=== PATIENT | female | born 1980 | race Caucasian/White ===

== ENCOUNTER → 2017-01-17 | Outpatient (CLI) | payer OTHER ==
[~2017-01-17] MED LIST: ALBUTEROL0.09 MG/A2 INH; AMOXICILLIN500 MG PO; ATIVAN0.5 MG PO; ATIVAN1 MG PO; BACTRIM DS 8001 TA1 PO; CALAN,ISOPTIN80 MG PO; CATAFLAM50 MG PO; CEPHALEXIN500 M1 PO; CYCLOBENZAPRINE10 MG PO; EC NAPROSYN500 MG PO; FIORICET 325 MG1 TAB PO; FLEXERIL10 MG PO; HYDROCODONE BIT1 T11 PO; HYDROCODONE BIT1 TA2 PO; IBU800 MG PO; IMITREX6 MG/0.5 M SC; INDOCIN50 MG PO; K-DUR 2020 MEQ PO; LISINOPRIL10 MG PO; LYRICA75 M1 PO; MEDROL DOSEPAK4 MG PO; MOTRIN800 MG PO; NAPROSYN500 MG PO; NEURONTIN300 MG PO; NORCO 325 MG-51 TAB PO; NORCO 7.5-3251 EACH PO; PERCOCET 325 MG1 TA2 PO; PERCOCET 325 MG1 TA6 PO; PERCOCET 325 MG1 TA7 PO; PHENERGAN W/DM120 ML PO; PHENERGAN25 M1 PO; PREDNICOT10 MG PO; PREDNICOT20 MG PO; PREDNISONE20 M1 PO; PROAIR HFA0.09 MG/AC INH; PROAIR HFA8.5 GM INH; Percocet 325 MG1 TAB PO; RESTORIL15 MG PO; TESSALON PERLE200 MG PO; TRAMADOL HCL50 MG PO; TRAMADOL50 MG PO; VICODIN 5/500 505 MG PO; VOLTAREN50 M1 PO; ZOFRAN ODT4 MG SL; ZOFRAN4 MG PO; ZOFRAN8 MG PO; Zofran4 MG PO; [UNRECOGNIZED DRUG - OTHER] PO; [UNRECOGNIZED DRUG - OTHER] PO
== END | disposition home or self-care (01) ==
LOC: MRI 12:41
DX: M48.07 Spinal stenosis, lumbosacral region (principal); Z98.1 Arthrodesis status

== ENCOUNTER 2017-02-23 08:12 | Inpatient (IN) | payer OTHER ==
[~2017-02-23] VITALS: Ht 165.1 cm; Wt 54.7 kg
[2017-02-23] VITALS (13 sets, daily range): BP systolic 129–165; BP diastolic 73–400
--- NOTE | ~2017-02-23 | PR ---
[place], [place] PROGRESS NOTE NAME: [facility]WICK [facility] [id number] UNIT #: [id number] ROOM: 408 DOCTOR: CRUZ DEAN MD BIRTHDATE: [birth year] DOS: 02/25/2017 SUBJECTIVE: The patient complaining of increasing pain in the right jaw despite of treatment with antibiotics. OBJECTIVE: VITAL SIGNS: Blood pressure 138/82, heart rate 81 beats per minute, breathing 18 times per minute, temperature 98.7 degrees Fahrenheit. GENERAL APPEARANCE: The patient is alert and oriented x 3, in no visible distress. HEENT AND NECK: Exam within normal limits, except for swelling in the right jaw area with pain and tenderness. CARDIOVASCULAR SYSTEM: Heart rate is regular in rate and rhythm. S1 and S2 normally audible. LUNGS: Clear to auscultation. ABDOMEN: Soft, nontender. No obvious organomegaly. Bowel sounds are present. EXTREMITIES: Without significant cyanosis or edema. IMPRESSION: 1. The patient with right second molar abscess going through the mandibular plate into the soft tissues, seen by surgeon, Dr. Zuniga and Dr. Collazo, the ID specialist, but the condition continues to deteriorate. I called [facility] since I could not find Dr. Zuniga and they will accept the patient tomorrow, so the patient can be seen by orofacial surgeon for drainage of the abscess. 2. Chronic low back pain related to surgery of lumbar spine. Chronic lower back pains treated with ibuprofen and Vicodin. 3. Generalized severe anxiety disorder, treated with Ativan as needed. 4. Benign essential hypertension, with controlled blood pressures with Ativan. CRUZ DEAN MD CM:PNTRANS [phone] CRUZ DEAN MD 02/26/17 2331 interface
--- NOTE | ~2017-02-23 | WRIGHTHP ---
[place], [place] PATIENT HISTORY AND PHYSICAL EXAM NAME: IVAN HARDWICK [facility] #: [id number] UNIT #: [id number] ROOM: 408 DOCTOR: CRUZ DEAN MD BIRTHDATE: [birth year] DOS: 02/23/2017 HISTORY OF PRESENT ILLNESS: The patient is a 37-year-old female with previous history of: 1. Lumbar spondylosis, with 2 lower back surgeries and chronic pains. 2. Significant generalized anxiety disorder. 3. Hypertension. 4. Migraine headaches. 5. POLLEN allergies. 6. Bronchial asthma. The patient presented to the Emergency Department with 1 week's complaint of progressive pain in her right lower jaw, which was worse for 3 days. The patient had also developed some swelling in her right jaw area and below. CT scan of the area showed right floor of the mouth abscess from periapical disease involving the right second mandibular molar, breaking through the inner table of the mandible. Dr. Zuniga, the orofacial surgeon was consulted and the patient was admitted to [facility] for treatment with IV antibiotics. Dr. Zuniga started patient on IV clindamycin and no surgical intervention has been recommended so far. No complaints of chest pains. No shortness of breath. No GI or urinary symptoms. The patient complains of significant pain in the lower back and also in the abscess area in the right jaw. REVIEW OF SYSTEMS: LUNGS: No shortness of breath or wheezing. GASTROINTESTINAL: No nausea, vomiting, diarrhea or constipation. CARDIOVASCULAR: No chest pains or palpitations. FAMILY HISTORY: Noncontributory. HOME MEDICATIONS: Vicodin, Ativan, albuterol inhaler, Zofran, verapamil. ALLERGIES: No known drug allergies. PHYSICAL EXAMINATION: GENERAL: Alert and oriented x 3, in no visible distress. HEENT AND NECK: Extraocular movements are intact. Sclerae are anicteric. Oral mucosa is moist and clean. No obvious facial weakness. Neck is supple without any lymphadenopathy. No thyromegaly. No JVD. No carotid arterial bruits. The patient has significant swelling below the right jaw line and to the side of the mandible, which is warm to touch. LUNGS: Clear to auscultation. No wheezing. No rhonchi. CARDIOVASCULAR SYSTEM: Heart rate is regular in rate and rhythm. S1 and S2 normally audible. No significant murmur or any other abnormal cardiac sounds. ABDOMEN: Soft, nontender. No obvious organomegaly. Bowel sounds are present. No obvious herniation. EXTREMITIES: Without significant cyanosis or edema. Warm to touch. CENTRAL NERVOUS SYSTEM: Alert and oriented x 3. Cranial nerves II-XII are [place], [place] PATIENT HISTORY AND PHYSICAL EXAM NAME: IVAN HARDWICK UNIT #: [id number] ROOM: [facility] DOCTOR: CRUZ DEAN MD BIRTHDATE: [birth year] intact. Speech is normal. The patient is able to move all extremities. Normal muscle strength. Deep tendon reflexes are equal on both sides. Plantars were downgoing. LABORATORY DATA: CT of the soft tissues of the neck results as mentioned above. Normal serum electrolytes. Normal CBC. Normal lactic acid level. IMPRESSION: 1. Abscess involving right floor of the mouth with second molar tooth and infection breaking through the inner table of the mandible on the right side, seen by Dr. Zuniga, the orofacial surgeon and recommended clindamycin. I am also consulting Infectious disease specialist to follow. Dr. Zuniga plans to see the patient in the office after infection resolves. 2. Chronic lower back pains for which she had 2 surgeries of the lumbar spine and severe acute pains in the right jaw, to be treated with Vicodin p.r.n. and I will add ibuprofen 800 mg 3 times a day to treatment. 3. Generalized severe anxiety disorder. I will continue Ativan as needed, which she has been taking at home. 4. Benign essential hypertension with controlled blood pressures with verapamil, which has been continued. CRUZ DEAN MD CM:HISPHYS:PATIENT HISTORY AND PHYSICAL EXAMINATION 49 [phone] CRUZ DEAN MD 02/23/171833 interface
--- NOTE | ~2017-02-23 | PR ---
[place], [place] PROGRESS NOTE [id number] UN[facility] #: [id number] ROOM: 408 DOCTOR: CRUZ DEAN MD BIRTHDATE: [birth year] DOS: 02/25/2017 SUBJECTIVE: The patient is still complaining of significant right-sided jaw pains and has been seen by Infectious Disease specialist and facial maxillary surgeon and she remains on antibiotics. OBJECTIVE: VITAL SIGNS: Blood pressure 141/87, heart rate 90 beats per minute, breathing 20 times per minute, temperature 98 degrees Fahrenheit. GENERAL APPEARANCE: The patient is alert and oriented x 3, in no visible distress. HEENT AND NECK: Swelling in the right jaw and below the jaw. CARDIOVASCULAR SYSTEM: Heart rate is regular in rate and rhythm. S1 and S2 normally audible. LUNGS: Clear to auscultation. ABDOMEN: Soft, nontender. No obvious organomegaly. Bowel sounds are present. EXTREMITIES: Without significant cyanosis or edema. IMPRESSION: The patient with abscess involving the right floor of the mouth related to the second molar tooth infection. The patient remains on Unasyn intravenously for the treatment. Dr. Gary Collazo, the Infectious Disease specialist, continues to follow her and will discuss the situation with Dr. Zuniga, the facial surgeon tomorrow. Benign essential hypertension with controlled blood pressure with verapamil. Gastroesophageal reflux disease and esophagitis. The patient on omeprazole. Significant jaw pains, controlled with Vicodin and Dilaudid as needed. CRUZ DEAN MD CM:PNTRANS 1822 CRUZ DEAN MD 02/26/17 0033 interface
--- NOTE | ~2017-02-23 | PR ---
[place], [place] PROGRESS NOTE NAME: [id number] UNIT #: [id number] ROOM: 408 DOCTOR: CRUZ DEAN MD BIRTHDATE: [birth year] DOS: SUBJECTIVE: The patient is still complaining of significant right jaw pains and she has no leukocytosis. The patient remains on clindamycin and ampicillin. OBJECTIVE: GENERAL APPEARANCE: The patient is alert and oriented x 3, in no visible distress. HEENT AND NECK: Swelling of the right jaw. CARDIOVASCULAR SYSTEM: Heart rate is regular in rate and rhythm. S1 and S2 normally audible. LUNGS: Clear to auscultation. ABDOMEN: Soft, nontender. No obvious organomegaly. Bowel sounds are present. EXTREMITIES: Without significant cyanosis or edema. IMPRESSION: The patient with abscess involving the right floor of the mouth related to second molar tooth infection. CRUZ DEAN MD CM:PNYASIR 21 [phone] CRUZ DEAN MD 02/24/171945 interface
--- NOTE | ~2017-02-23 | PR ---
[place], [place] PROGRESS NOTE NAME: IVAN HARDWICK [facility] #: [id number] UNIT #: [id number] ROOM: 408 DOCTOR: CRUZ DEAN MD BIRTHDATE: [birth year] DOS: 02/28/2017 SUBJECTIVE: The patient had dental abscess of the second molar tooth on the right side in the lower jaw with facial swelling. The patient is being treated with Unasyn, which has been recommended for 3 weeks. IMPRESSION: 1. PICC line placement for IV access for antibiotics. 2. The patient is waiting for transfer to [facility] for draining the dental abscess. 3. Generalized severe anxiety disorder. The patient uses Ativan as needed. 4. Benign essential hypertension with controlled blood pressures. CRUZ DEAN MD CM:PNTRANS [phone] CRUZ DEAN MD 03/01/17 0253 interface
--- NOTE | ~2017-02-23 | CON ---
[place], [place] REPORT OF CONSULTATION [id number] UN[facility] #: [id number] ROOM: 408 DOCTOR: HENRY GARCIA DMD BIRTHDATE: [birth year] DOS: REASON FOR CONSULTATION: Right-sided facial swelling. HISTORY OF PRESENT ILLNESS: The patient gives a history of pain for 7 day's duration, treated by her physician for an earache with oral amoxicillin. The patient discontinued medication when she was feeling better and returned to the Emergency Department with pain and swelling today. PHYSICAL EXAMINATION: There is a moderate right-sided facial swelling with mild erythema extending laterally down her neck on the right side. Range of motion is extremely limited, roughly 15 mm of maximum opening. Her right parotid and right submandibular glands were palpated and both ____. There is a firm and fluctuant swelling in the right submandibular space. The submental space is within normal limits and the right sublingual space is tender, but non-swollen. The patient denies any dyspnea or dysphagia. Tooth #31 has a distal fracture. I discussed treatment options with the patient. The swelling is currently non-drainable. The treatment needed is either extraction of tooth #31 or root canal therapy of tooth #31. I recommend IV antibiotics for 1 to 2 days and discharge on oral antibiotics, clindamycin 300 mg t.i.d. and the patient is to followup with her private dentist for treatment. HENYR GARCIA DMD CM:CONSTR:REPORT OF CONSULTATION 53 02/23/172132 interface
--- NOTE | ~2017-02-23 | DS ---
[place], [place] DISCHARGE SUMMARY NAME: IVAN HARDWICK UNIT #: [id number] ROOM: 408 DOCTOR: CRUZ DEAN MD BIRTHDATE: [birth year] DOS: 02/27/2017 HOSPITAL COURSE: The patient with some less pain in her right jaw this morning, but she says when the pains come they are severe. PHYSICAL EXAMINATION: VITAL SIGNS: Blood pressure 140/88, heart rate 78 beats per minute, breathing 18 times per minute, temperature 98 degrees Fahrenheit. GENERAL APPEARANCE: The patient is alert and oriented x 3, in no visible distress. HEENT AND NECK: Extraocular movements are intact. Sclerae are anicteric. Oral mucosa is moist and clean. No obvious facial weakness. Neck is supple without any lymphadenopathy. No thyromegaly. No JVD. No carotid arterial bruits. Swelling of the right side of the jaw. LUNGS: Clear to auscultation. No wheezing. No rhonchi. CARDIOVASCULAR SYSTEM: Heart rate is regular in rate and rhythm. S1 and S2 normally audible. No significant murmur or any other abnormal cardiac sounds. ABDOMEN: Soft, nontender. No obvious organomegaly. Bowel sounds are present. No obvious herniation. EXTREMITIES: Without significant cyanosis or edema. Warm to touch. CENTRAL NERVOUS SYSTEM: Alert and oriented x 3. Cranial nerves II-XII are intact. Speech is normal. The patient is able to move all extremities. Normal muscle strength. Deep tendon reflexes are equal on both sides. Plantars were downgoing. IMPRESSION: 1. The patient with right second molar abscess, going through the mandibular plate into the soft tissues, without significant improvement with IV antibiotics. The patient is being transferred to [facility] for surgical drainage and treatment of bone infection as suspected by Dr. Collazo, the Infectious Disease specialist at [facility]. 2. Chronic lower back pains related to surgery of the lumbar spine, treated with ibuprofen and Vicodin as at home. 3. Generalized severe anxiety, treated with Ativan as needed. 4. Benign essential hypertension, controlled. 5. Anxiety. The patient takes verapamil. [place], [place] DISCHARGE SUMMARY NAME: IVAN HARDWICK UNIT #: [id number] ROOM: 408 DOCTOR: CRUZ DEAN MD BIRTHDATE: [birth year] CRUZ DEAN MD CM:SAL [id number] CRUZ DEAN MD 02/28/17 0846 interface
[~2017-02-23 08:12] MED LIST changes: -CALAN,ISOPTIN80 MG PO; +CALAN80 MG PO
[2017-02-23 09:25] LABS: BASO # 0.1 10*3/uL (0.0-0.1); BASO % 0.6 % (0.0-1.0); EOS # 0.1 10*3/uL (0.0-0.4); EOS % 0.9 % (1.0-4.0); HEMATOCRIT 38.8 % (37.0-47.0); HEMOGLOBIN 12.9 g/dl (12.0-16.0); LYMPH # 1.2 10*3/uL (1.3-4.4); LYMPH % 12.4 % (27.0-41.0); MEAN CELL VOLUME 94.6 fl (81.0-99.0); MEAN CORPUSCULAR HGB 31.5 pg (27.0-31.0); MEAN CORPUSCULAR HGB CONC 33.2 g/dl (33.0-37.0); MEAN PLATELET VOLUME 8.6 fl (9.6-12.3); MONO # 0.7 10*3/uL (0.1-1.0); NEUT # 7.6 10*3/uL (2.3-7.9); NEUT % 78.8 % (47.0-73.0); PLATELET COUNT AUTOMATED 308 10*3/uL (130-400); RED CELL DISTRI WIDTH 12.3 % (0-14.5); WHITE BLOOD COUNT 9.7 10*3/uL (4.8-10.8)
--- NOTE | 2017-02-23 09:25 | NUR ---
PATIENT IS ALERT AND ORIENTED X3, SKIN IS PINK, WARM, AND DRY, RESPIRATIONS ARE EASY AND NONLABORED, CALL LIGHT IN REACH OF THE PATIENT, PATIENT IS SITTING IN BED IN POSITION OF COMFORT TIE SAWYER HILDA IS AWARE OF THE PATIENT AND WAS INTO SEE THE PATIENT, CONTINUING TO MONITOR THE PATIENT. MATT JACKSON
[2017-02-23 09:41] LABS: ALBUMIN 3.5 gm/dl (3.1-4.5); ALKALINE PHOSPHATASE 60 U/L (45-117); BUN 11 mg/dl (7-24); CHLORIDE 106 mmol/L (98-107); CREATININE 0.58 mg/dL (0.55-1.02); SGOT/AST 8 IU/L (3-35); SGPT/ALT 15 U/L (12-78); SODIUM 138 mmol/L (136-145); TOTAL PROTEIN 8.1 gm/dL (6.4-8.2)
--- NOTE | 2017-02-23 09:56 | NUR ---
PATIENT IS ALERT AND ORIENTED X3, STATES THAT HE HAS HAD SOME RELIEF FROM HIS PAIN AT THIS TIME RATES HIS PAIN A 3/10, SKIN IS PINK, WARM, AND DRY, RESPIRATIONS ARE EASY AND NONLABORED, PATIENT IS RESTING IN BED, CALL LIGHT IN REACH OF THE PATIENT, CONTINUING TO MONITOR THE PATIENT. MATT JACKSON
--- NOTE | 2017-02-23 10:19 | NUR ---
PATIENT STATES THAT SHE HAS HAD SOME RELIEF FROM HER PAIN AT THIS TIME, PATIENT IS RESTING IN BED IN POSITION OF COMFORT, CALL LIGHT IN REACH OF THE PATIENT, CONTINUING TO MONITOR THE PATIENT, RATES PAIN A 6/10 AT THIS TIME. MATT JACKSON
--- NOTE | 2017-02-23 11:30 | NUR ---
PATIENT IS ALERT AND ORIENTED X3, SKIN IS PINK, WARM, AND DRY, RESPIRATIONS ARE EASY AND NONLABORED, PATIENT IS RESTING IN BED AND WATCHING TV AT THIS TIME, CALL LIGHT IN REACH OF THE PATIENT, CONTINUING TO MONITOR THE PATIENT. MANUELRN
--- NOTE | 2017-02-23 12:02 | NUR ---
PATIENT IS ALERT AND ORIENTED X3, PATIENT IS SITTING UP IN BED AND WATCHING TV IN POSITION OF COMFORT, STATES THAT SHE HAS HAD RELIEF FROM MOST OF HER PAIN, PATIENT CURRENTLY RATES HER PAIN A 2/10, CALL LIGHT IN REACH OF THE PATIENT, CONTINUING TO MONITOR THE PATIENT. MANUELRN
--- NOTE | 2017-02-23 12:35 | NUR ---
PATIENT IS ALERT AND ORIENTED X3, SKIN IS PINK, WARM, AND DRY, RESPIRATIONS ARE EASY AND NONLABORED, PATIENT IS RESTING IN BED WATCHING TV, CALL LIGHT IN REACH OF THE PATIENT, CONTINUING TO MONITOR THE PATIENT. MATT JACKSON
--- NOTE | 2017-02-23 13:22 | NUR ---
ATTEMPTED TO CALL REPORT ON THE PATIENT AND I SPOKE WITH MORGAN AND SHE STATED " I DONT EVEN KNOW WHO IS GETTING THAT PATIENT, I WILL HAVE THE NURSE WHO GETS IT CALL YOU BACK". MATT JACKSON
--- NOTE | 2017-02-23 13:27 | NUR ---
PATIENT IS ALERT AND ORIENTED X3, STATES THAT SHE IS COMFORTABLE PAIN QUESADA AT THE MOMENT, SKIN IS PINK, WARM, AND DRY, RESPIRATIONS ARE EASY AND NONLABORED, CALL LIGHT IN REACH OF THE PATIENT, CONTINUING TO MONITOR THE PATIENT. MATT JACKSON
--- NOTE | 2017-02-23 13:41 | NUR ---
PATIENT TAKEN TO THE FLOOR BY MAYO NIELSEN AT THIS TIME, REPORT CALLED TO MATT MONROE. MATT JACKSON
--- NOTE | 2017-02-23 14:09 | NUR ---
A 37, admitted to , under the services of Dr. DIANNE HARMON,CRUZ Riley with a diagnosis of ELEVATED BLOOD PRESSURE. Chief complaint is RIGHT FACIAL PAIN. Patient arrived via ambulatory from ER. Initial assessment completed. Vital signs taken and recorded. DR. DIANNE HARMON,CRUZ Riley notified of admission to the unit. Orders received. See assessment for past medical history, medications and allergies. Patient and/or family oriented to unit. [facility] visitation policy reviewed. Clothing/patient valuable form completed. MABEL ZELAYA
[2017-02-23] MEDS ORDERED: ZOFRAN4 MG PO (14:11)
--- NOTE | 2017-02-23 16:50 | NUR ---
MOTRIN/NORCO FOR 02/12 PAIN
--- NOTE | 2017-02-23 18:34 | NUR ---
FELLING MUCH BETTER AFTER MOTRIN/NORCO AND ICE PACK TO RIGHT FACE
--- NOTE | 2017-02-23 18:38 | NUR ---
DR DOMINGO SERVICE NOTIFIED OF NEW CONSULT
--- NOTE | 2017-02-23 20:25 | NUR ---
PT REQUESTED PAIN MEDICATION FOR PAIN OF THE RIGHT JAW. RATES PAIN AT A 7 OUT OF 10.
--- NOTE | 2017-02-23 21:02 | NUR ---
NORCO EFFECTIVE PER PT. PAIN REATED AT 4 OUT OF 10.
[2017-02-24] VITALS: BP 138/86
--- NOTE | 2017-02-24 02:57 | NUR ---
PT REQUESTED MEDICATION FOR PAIN. PAIN IS LOCATED IN RIGHT SIDE OF JAW AND IS THROBBING, ACHING, AND CONSTANT. RATES PAIN AT 7 OUT OF 10.
--- NOTE | 2017-02-24 03:48 | NUR ---
NORCO EFFECTIVE. PT IN BED SLEEPING COMFORTABLY. NO DISTRESS NOTED.
[2017-02-24 06:03] LABS: BASO % 0.4 % (0.0-1.0); EOS # 0.2 10*3/uL (0.0-0.4); EOS % 1.6 % (1.0-4.0); HEMOGLOBIN 11.8 g/dl (12.0-16.0); LYMPH # 1.6 10*3/uL (1.3-4.4); LYMPH % 14.9 % (27.0-41.0); MEAN CELL VOLUME 95.1 fl (81.0-99.0); MEAN CORPUSCULAR HGB 32.1 pg (27.0-31.0); MEAN CORPUSCULAR HGB CONC 33.7 g/dl (33.0-37.0); MEAN PLATELET VOLUME 8.9 fl (9.6-12.3); MONO # 1.2 10*3/uL (0.1-1.0); MONO % 11.2 % (3.0-9.0); NEUT # 7.6 10*3/uL (2.3-7.9); NEUT % 71.5 % (47.0-73.0); PLATELET COUNT AUTOMATED 294 10*3/uL (130-400); RED BLOOD COUNT 3.68 10*6/uL (4.10-5.10); RED CELL DISTRI WIDTH 12.2 % (0-14.5); WHITE BLOOD COUNT 10.6 10*3/uL (4.8-10.8)
--- NOTE | 2017-02-24 06:36 | NUR ---
CALLED . PT IN PAIN AND MEDS ON JUL NOT HELPING AND TOO EARLY TO GIVE NEXT DOSE. NEW ORDERS RECEIVED. SEE JUL.
--- NOTE | 2017-02-24 07:07 | NUR ---
PT REQUESTED PAIN MEDICATION. RATES PAIN AT 10 OUT OF 10. DESCRIBES THE PAIN ACHING, THROBBING AND LOCATED IN THE RIGHT JAW.
--- NOTE | 2017-02-24 07:40 | NUR ---
PER PATIENT, DILAUDID WAS EFFECTIVE. NO FURTHER COMPLAINTS AT THIS TIME.
[2017-02-24 08:00] VITALS: BP 144/84
--- NOTE | 2017-02-24 09:50 | NUR ---
PATIENT MEDICATED WITH PO NORCO PER ORDER FOR COMPLAINTS OF RIGHT JAW PAIN 01/13. WILL MONITOR FOR EFFECTIVENESS.
--- NOTE | 2017-02-24 10:35 | NUR ---
PER PATIENT NORCO WAS SOMEHWAT EFFECTIVE.
[2017-02-24 12:00] VITALS: BP 136/80
--- NOTE | 2017-02-24 13:05 | NUR ---
PATIENT MEDICATED WITH DILAUDID FOR 10/10 PAIN AT THIS TIME. WILL MONITOR.
--- NOTE | 2017-02-24 13:45 | NUR ---
PER PATIENT, MEDICATION HAS BEEN EFFECTIVE. NO FURTHER COMPLAINTS.
[2017-02-24 16:00] VITALS: BP 144/76
--- NOTE | 2017-02-24 18:15 | NUR ---
PATIENT REQUESTING PAIN MEDICATION FOR 9/10 PAIN. GIVEN NORCO AT THIS TIME PER ORDER. WILL MONITOR.
[2017-02-24 20:00] VITALS: BP 140/89
--- NOTE | 2017-02-24 20:05 | NUR ---
PT C/O RIGHT JAW PAIN. DILAUDID 1 MG ADMINISTERED VIA IV AT THIS TIME. WILL MONITOR FOR EFEFCTIVENESS. PT CURRENTLY RESTING IN BED, CALL LIGHT IN REACH.
--- NOTE | 2017-02-24 21:05 | NUR ---
DILAUDID EFFECTIVE. PT STATES THAT RIGHT JAW PAIN HAS DECREASED AT THIS TIME AND SHE IS RESTING PEACEFULLY IN BED. WILL CONTINUE TO MONITOR FOR PAIN THROUGHOUT SHIFT. CALL LIGHT IN REACH.
[2017-02-25] VITALS: BP 116/73
--- NOTE | 2017-02-25 01:35 | NUR ---
PT GIVEN NORCO 7.5/325 MG TABLET PO AT THIS TIME FOR RIGHT JAW PAIN RATING A 8/10. WILL MONITOR FOR EFFECTIVENESS. CALL LIGHT IN REACH.
--- NOTE | 2017-02-25 02:51 | NUR ---
PT. CALLED OUT STATED "THAT OTHER MEDICATION IS NOT HELPING AT ALL WITH MY PAIN." DILAUDID GIVEN PER ORDER FOR ABSCESS PAIN IN RIGHT JAW LINE PAIN RATED "9". SEE MAR. ICE PACK SO APPLIED TO SITE.
--- NOTE | 2017-02-25 03:51 | NUR ---
DILAUDID EFFECTIVE PER PT. PT RESTING IN BED, CALL LIGHT IN REACH.
--- NOTE | 2017-02-25 04:07 | NUR ---
24 HR chart check completed.
[2017-02-25 06:14] LABS: BASO # 0.1 10*3/uL (0.0-0.1); BASO % 0.6 % (0.0-1.0); EOS # 0.1 10*3/uL (0.0-0.4); HEMATOCRIT 35.1 % (37.0-47.0); HEMOGLOBIN 11.7 g/dl (12.0-16.0); LYMPH # 1.3 10*3/uL (1.3-4.4); LYMPH % 12.2 % (27.0-41.0); MEAN CELL VOLUME 94.1 fl (81.0-99.0); MEAN CORPUSCULAR HGB 31.4 pg (27.0-31.0); MEAN CORPUSCULAR HGB CONC 33.3 g/dl (33.0-37.0); MEAN PLATELET VOLUME 8.9 fl (9.6-12.3); MONO # 0.7 10*3/uL (0.1-1.0); MONO % 6.9 % (3.0-9.0); NEUT # 8.1 10*3/uL (2.3-7.9); PLATELET COUNT AUTOMATED 283 10*3/uL (130-400); RED BLOOD COUNT 3.73 10*6/uL (4.10-5.10); RED CELL DISTRI WIDTH 12.2 % (0-14.5); WHITE BLOOD COUNT 10.3 10*3/uL (4.8-10.8)
--- NOTE | 2017-02-25 07:56 | NUR ---
NORCO/MOTRIN FOR 10/10 RIGHT FACE PAIN
[2017-02-25 08:00] VITALS: BP 170/106
--- NOTE | 2017-02-25 09:16 | NUR ---
DILUADID/ZOFRAN FOR 6/10 RIGHT FACIAL PAIN
[2017-02-25 11:59] VITALS: BP 116/72
--- NOTE | 2017-02-25 15:56 | NUR ---
DILUADID FOR 10/10 RIGHT FACE PAIN
[2017-02-25 16:00] VITALS: BP 141/87
[2017-02-25 20:00] VITALS: BP 132/75
--- NOTE | 2017-02-25 20:11 | NUR ---
PT. RESTING IN BED. BED HEPLOCK IN GERALD ASYMPT. LUNGS CLEAR BILAT ,PULSE OX 100% ON RA. ABDOME NSOFT, NONDISTNEDED AND NORMO. NO PERIPHERAL EDEMA NOTED. RIGHT JAW SWELLING NOTED. RESP. EASY AND REG, NO DISTRESS. DAHIANA VITAL RN
--- NOTE | 2017-02-25 22:01 | NUR ---
PT. GIVEN NORCO AT 2120 WITH MINIMAL PAIN RELIEVING RESULTS, GIVEN DILAUDID AT 2135 ORDERED FOR PAIN IN RIGHT JAW.
[2017-02-26] VITALS: BP 157/86
--- NOTE | 2017-02-26 00:14 | NUR ---
PT. SLEEPING, DILAUDID AND NORCO EFFECTIVE. DAHIANA VITAL RN
--- NOTE | 2017-02-26 03:48 | NUR ---
PT. GIVEN DILAUDID ORDERED FOR COMPLAINTS OF RIGHT JAW PAIN. STATED #10 ON 1-10 PAIN SCALE.
--- NOTE | 2017-02-26 04:04 | NUR ---
PT. SLEEPING, DILAUDID EFFECTIVE.
--- NOTE | 2017-02-26 05:28 | NUR ---
PT. CRYING, NORCO GIVEN FOR COMPLAINTS OF CONTINUING PAIN IN RIGHT JAW.
[2017-02-26 06:06] LABS: BASO % 0.5 % (0.0-1.0); EOS % 0.5 % (1.0-4.0); HEMATOCRIT 34.5 % (37.0-47.0); HEMOGLOBIN 11.5 g/dl (12.0-16.0); LYMPH # 1.2 10*3/uL (1.3-4.4); LYMPH % 14.8 % (27.0-41.0); MEAN CELL VOLUME 92.5 fl (81.0-99.0); MEAN CORPUSCULAR HGB 30.8 pg (27.0-31.0); MEAN CORPUSCULAR HGB CONC 33.3 g/dl (33.0-37.0); MEAN PLATELET VOLUME 8.9 fl (9.6-12.3); MONO % 12.2 % (3.0-9.0); NEUT # 5.6 10*3/uL (2.3-7.9); NEUT % 71.5 % (47.0-73.0); PLATELET COUNT AUTOMATED 283 10*3/uL (130-400); RED BLOOD COUNT 3.73 10*6/uL (4.10-5.10); WHITE BLOOD COUNT 7.9 10*3/uL (4.8-10.8)
--- NOTE | 2017-02-26 06:11 | NUR ---
PT. STATES NORCO MILDLY EFFECTIVE.
[2017-02-26 08:00] VITALS: BP 142/84
--- NOTE | 2017-02-26 08:49 | NUR ---
Pressing Machine Operator in to talk to patient. Patient states lives at HOME with HER AND 3 CHILDREN. There are 10 steps in the home. Physician: DR AGUILAR Pharmacy: [facility] IN [place] Home health services: NONE Patient's level of ADLs: INDEPENDENT Patient has working utilities: YES DME: NONE Follow-up physician's appointment after d/c: PREFERS TO MAKE HER OWN APPT Does patient want to access PORTAL?: Discharge plan HOME. [facility] PT MAY NEED HOME IV ATB. WILL REVISIT IF ATB NEEDED.
--- NOTE | 2017-02-26 10:00 | NUR ---
PATIENT MEDICATED WITH DILAUDID AT THIS TIME FOR PAIN ASSESSMENT OF 7/10 IN RIGHT JAW. WILL MONITOR FOR EFFECTIVENESS.
--- NOTE | 2017-02-26 10:30 | NUR ---
PATIENT STATES THAT PAIN MEDICATION HAS BEEN EFFECTIVE. NO FURTHER COMPLAINTS.
[2017-02-26 12:00] VITALS: BP 138/82
--- NOTE | 2017-02-26 12:18 | NUR ---
PATIENT OFF FLOOR GETTING PICC LINE PLACED AT THIS TIME.
--- NOTE | 2017-02-26 15:07 | NUR ---
PATIENT MEDICATED WITH NORCO AT THIS TIME FOR COMPLAINTS OF RIGHT JAW PAIN 11/12. WILL MONITOR.
[2017-02-26] MEDS ORDERED: UNASYN 3 GM VIAL3 GM IV (15:48)
--- NOTE | 2017-02-26 18:30 | NUR ---
PATIENT MEDICATED WITH DILAUDID PER ORDER FOR 8/10 RIGHT JAW PAIN. WILL MONITOR FOR EFFECTIVENESS.
--- NOTE | 2017-02-26 18:49 | NUR ---
PER PATIENT, MEDICATION HAS BEEN EFFECTIVE. NO FURTHER NEEDS AT THIS TIME.
--- NOTE | 2017-02-26 19:52 | NUR ---
PT. RESTING IN BED. PICC IN RIGHT UPPER ARM NOTED TO BE ASYMPT. LUNGS CLEAR BILAT. ABDOMEN SOFT, NONDISTENDED AND NORMO. NO PERIPHERAL EDEMA NOTED. RESP. EASY AND REG NO DSITRESS. RIGHT JAW REMAINS SWOLLEN AND PAINFUL PER PT. MEDICATED PRN WITH PAIN MEDICATION ORDERED. AWAITING BED AT [facility] FOR TRANSFER. DAHIANA VITAL RN
--- NOTE | 2017-02-26 21:33 | NUR ---
PT. GIVEN ATIVAN AND NORCO ORDERED AT 2108 FOR COMPLAINTS OF ANXIETY AND JAW PAIN.
--- NOTE | 2017-02-26 23:14 | NUR ---
PT. SLEEPING, ATIVAN AND NORCO EFFECTIVE.
[2017-02-27] VITALS: BP 143/98
--- NOTE | 2017-02-27 00:53 | NUR ---
DILAUDID GIVEN ORDERED FOR COMPLAINTS OF CONTINUED JAW PAIN.
--- NOTE | 2017-02-27 05:48 | NUR ---
PT. GIVEN DILAUDID ORDERED AT 0549 FOR CONTINUING JAW PAIN.
--- NOTE | 2017-02-27 06:07 | NUR ---
PT. SLEEPING, DILAUDID EFFECTIVE.
--- NOTE | 2017-02-27 07:51 | NUR ---
Shift chart check completed.24 HR chart check completed. Bedside report from Janice. Pt resting since earlier pain meds. Still waiting on bed availability at [facility]. PICC line intact.
[2017-02-27 08:00] VITALS: BP 140/88
[2017-02-27 12:00] VITALS: BP 130/79
--- NOTE | 2017-02-27 12:59 | NUR ---
DILAUDID FOR PAIN IN JAW ".
--- NOTE | 2017-02-27 14:21 | NUR ---
RESTING SINCE EARLIER DILAUDID.
[2017-02-27 16:00] VITALS: BP 152/92
--- NOTE | 2017-02-27 16:25 | NUR ---
MEDICATED WITH SCHEDULED IBUPROFEN AND A DOSE OF VICODIN FOR JAW PAIN.
--- NOTE | 2017-02-27 16:50 | NUR ---
PT ANXIOUS BECAUSE WE HAVEN'T HEARD ABOUT A BED AT [facility]. MAINTENANCE SHOP CLERK CALLED THE [facility] AND STILL WAITING ON A BED. ICE BAGS REFILLED FOR HER.
--- NOTE | 2017-02-27 17:37 | NUR ---
"SOME" RELIEF FROM EARLIER VICODIN.
--- NOTE | 2017-02-27 18:23 | NUR ---
PT CLAIMS SHE'S BEEN VOMITING IN THE PAST 20 MINUTES AND "IT HURT SO BAD TO VOMIT". SBLG ZOFRAN GIVEN.
--- NOTE | 2017-02-27 18:54 | NUR ---
DILAUDID IV FOR JAW PAIN.
[2017-02-27 20:00] VITALS: BP 133/83
--- NOTE | 2017-02-27 20:44 | NUR ---
PATIENT COMPLAINED OF NAUSEA AND VOMITING. EMESIS AFTER DINNER AND AGAIN LATER AT 1999.
--- NOTE | 2017-02-27 20:45 | NUR ---
DR DEAN NOTIFIED OF NAUSEA AND VOMITING. ORDER RECEIVED TO INCREASE ZOFRAN TO 8MG SUBL. Q6 HOURS AND D/C ZOFRAN 4MG Q6 HOURS.
--- NOTE | 2017-02-27 21:00 | NUR ---
PATIENT ADVISED OF NEW ORDER FOR ZOFRAN. PATIENT STATED THAT SHE THINKS THE PAST ZOFRAN GIVEN IS NOW WORKING. PATIENT STATES SHE IS GOING TO WAIT AWHILE BEFORE GETTING ANOTHER DOSE OF ZOFRAN. NAUSEA HAS DECREASED AT PRESENT TIME.
--- NOTE | 2017-02-27 23:30 | NUR ---
PT COMPLAINS OF PAIN 6/10 AND NAUSEA. MEDICATED WITH GOOD EFFECT. SEE EMAR.
[2017-02-28] VITALS: BP 131/83
--- NOTE | 2017-02-28 02:36 | NUR ---
PT COMPLAINS OF RIGHT JAW PAIN 10/13. MEDICATED WITH GOOD EFFECT.
--- NOTE | 2017-02-28 06:31 | NUR ---
RN SPOKE WITH REP FROM [facility] AND WAS TOLD THAT THEY HAVE NO BEDS AVAILABLE AT THIS TIME.
[2017-02-28 08:00] VITALS: BP 150/88
--- NOTE | 2017-02-28 09:00 | NUR ---
MEDICATED IV SLOWLY ORDERED PER PT REQUEST WITH DILAUDID FOR CONTINUED C/O RT JAW PAIN. PT RATES PAIN 10/10 & STATES PREVIOUS MEDICATION ONLY MILDY EFFECTIVE FOR SHORT PERIOD. WILL CONINUE TO MONITOR.
[2017-02-28 16:00] VITALS: BP 158/68
--- NOTE | 2017-02-28 16:51 | NUR ---
MEDICATED IV SLOWLY ORDERED PER PT REQUEST WITH FOR C/O RT FACIAL DISCOMFORT. PT RATES PAIN 12/13. PO ZOFRAN FOR C/O NAUSEA. SEE EMAR.
--- NOTE | 2017-02-28 17:58 | NUR ---
MEDICATION EFFECTIVE PER PT IN RELIEVING DISCOMFORT. WILL CONTINUE TO MONITOR.
[2017-02-28 20:00] VITALS: BP 149/83
--- NOTE | 2017-02-28 20:00 | NUR ---
PATIENT SHOWERED AND PREPARED FOR TRANSPORT TO [facility]. FAMILY AWARE. BELONGINGS TAKEN BY FAMILY.
--- NOTE | 2017-02-28 20:30 | NUR ---
PATIENT GIVEN NORCO FOR RIGHT JAW PAIN 6/10, PRIOR TO TRANSPORT TO [place].
--- NOTE | 2017-02-28 21:00 | NUR ---
PATIENT OUT OF FACILITY VIA [facility] TO [facility]. FAMILY WITH PATIENT. NO S/S OF DISTRESS. PATIENT AWAKE, ALERT AND ORIENTED. PAIN SUBSIDED TO A 4/10.
--- NOTE | 2017-02-28 21:00 | NUR ---
Discharge instructions reviewed with patient/family. Patient receptive and verbalizes understanding. Follow-up care arranged. Written instructions given to patient/family. PATIENT TRANSPORTED TO [facility] VIA [facility]. TRANSFER PAPERS GIVEN TO [facility]. RADHAMES HADLEY
--- NOTE | 2017-02-28 21:10 | NUR ---
REPORT CALLED TO [facility]. WAS ADVISED OF MEDICATION GIVEN PRIOR TO TRANSPORT, HX, REASON FOR TRANSPORT, CURRENT STATUS, RECENT VITALS AND APPROX. ARRIVAL TIME.
== END 2017-02-28 21:00 | disposition short-term general hospital (02) | DRG 158 ==
LOC: ED 08:12 → EDHOLD 12:33 → 4E 12:33
PROVIDERS: Nurse Practitioner Family; ADMIT Internal Medicine
PROC: 02H633Z Insertion of Infusion Device into Right Atrium, Percutaneous Approach (ICD-10-PCS; principal; 2017-02-26)
DX: M27.2 Inflammatory conditions of jaws (principal); K12.2 Cellulitis and abscess of mouth; F41.1 Generalized anxiety disorder; K03.81 Cracked tooth; I10 Essential (primary) hypertension; M54.5 Low back pain; G43.909 Migraine, unspecified, not intractable, without status migrainosus; J45.909 Unspecified asthma, uncomplicated; G89.29 Other chronic pain; K04.7 Periapical abscess without sinus; K21.0 Gastro-esophageal reflux disease with esophagitis; Z90.710 Acquired absence of both cervix and uterus; Z98.51 Tubal ligation status; Z82.49 Family history of ischemic heart disease and other diseases of the circulatory system; Z82.3 Family history of stroke; Z79.899 Other long term (current) drug therapy; Z88.8 Allergy status to other drugs, medicaments and biological substances

== ENCOUNTER 2018-03-03 10:39 | Emergency (ER) | payer SELFPAY ==
[~2018-03-03] VITALS: Ht 165.1 cm; Wt 50.8 kg
[~2018-03-03 10:39] MED LIST changes: +UNASYN 3 GM VIAL3 GM IV
[2018-03-03] MEDS ORDERED: MIRTAZAPINE15 M2 PO (10:46)
[2018-03-03] MEDS ORDERED: HYDROCODONE-AC1 EAC2 PO (10:46)
[2018-03-03 11:34] LABS: BASO # 0.1 10*3/uL (0.0-0.1); BASO % 0.8 % (0.0-1.0); EOS % 0.6 % (1.0-4.0); HEMATOCRIT 41.3 % (37.0-47.0); LYMPH # 2.3 10*3/uL (1.3-4.4); LYMPH % 32.2 % (27.0-41.0); MEAN CELL VOLUME 93.7 fl (81.0-99.0); MEAN CORPUSCULAR HGB 31.7 pg (27.0-31.0); MEAN CORPUSCULAR HGB CONC 33.9 g/dl (33.0-37.0); MEAN PLATELET VOLUME 8.4 fl (9.6-12.3); MONO # 0.4 10*3/uL (0.1-1.0); MONO % 5.7 % (3.0-9.0); NEUT # 4.3 10*3/uL (2.3-7.9); NEUT % 60.4 % (47.0-73.0); PLATELET COUNT AUTOMATED 251 10*3/uL (130-400); RED BLOOD COUNT 4.41 10*6/uL (4.10-5.10); RED CELL DISTRI WIDTH 13.2 % (0-14.5); WHITE BLOOD COUNT 7.1 10*3/uL (4.8-10.8)
[2018-03-03 11:46] LABS: BILIRUBIN NEGATIVE (NEGATIVE); BLOOD NEGATIVE (NEGATIVE); CLARITY SL CLOUDY (CLEAR); COLOR YELLOW (YELLOW); GLUCOSE NEGATIVE (NEGATIVE); KETONE NEGATIVE (NEGATIVE); LEUKO ESTERASE NEGATIVE (NEGATIVE); NITRITE NEGATIVE (NEGATIVE); PH 6.5 (5.0-9.0); UROBILINOGEN 0.2 E.U./dl (0.2-1.0)
[2018-03-03 11:49] LABS: ALBUMIN 3.8 gm/dl (3.1-4.5); ALKALINE PHOSPHATASE 44 U/L (45-117); BUN 11 mg/dl (7-24); CHLORIDE 107 mmol/L (98-107); CREATININE 0.74 mg/dL (0.55-1.02); LIPASE 80 U/L (73-393); POTASSIUM 3.6 mmol/L (3.5-5.1); SGOT/AST 5 IU/L (3-35); SGPT/ALT 16 U/L (12-78); SODIUM 139 mmol/L (136-145); TOTAL PROTEIN 7.5 gm/dL (6.4-8.2)
[2018-03-03 12:00] LABS: BACTERIA 1+; MUCOUS 2+
== END 2018-03-03 18:06 | disposition home or self-care (01) ==
LOC: ED 10:39
PROVIDERS: Emergency Medicine
DX: R10.11 Right upper quadrant pain (principal); I10 Essential (primary) hypertension; F17.200 Nicotine dependence, unspecified, uncomplicated; Z79.899 Other long term (current) drug therapy; Z90.710 Acquired absence of both cervix and uterus; Z90.49 Acquired absence of other specified parts of digestive tract

== ENCOUNTER 2020-06-01 17:48 | Emergency (ER) | payer SELFPAY ==
[~2020-06-01] VITALS: Ht 165.1 cm; Wt 56.7 kg
[~2020-06-01 17:48] MED LIST changes: +COZAAR25 M1 PO; +HYDROCODONE-AC1 EAC2 PO; +MIRTAZAPINE15 M2 PO
== END 2020-06-01 22:45 | disposition home or self-care (01) ==
LOC: ED 17:48
DX: R51.9 Headache, unspecified (principal); Z90.49 Acquired absence of other specified parts of digestive tract; Z98.51 Tubal ligation status; Z90.710 Acquired absence of both cervix and uterus; Z79.899 Other long term (current) drug therapy

== ENCOUNTER → 2020-10-13 | Outpatient (CLI) | payer SELFPAY | END | disposition home or self-care (01) | LOC: RAD 13:46 | PROVIDERS: ATTEND Orthopaedic Surgery | DX: M25.512 Pain in left shoulder (principal) ==

== ENCOUNTER 2021-01-17 13:10 | Emergency (ER) | payer SELFPAY ==
[~2021-01-17] VITALS: Wt 56.2 kg
[2021-01-17 14:16] LABS: BASO # 0.1 10*3/uL (0.0-0.1); EOS % 0.3 % (1.0-4.0); HEMATOCRIT 39.4 % (37.0-47.0); LYMPH # 2.3 10*3/uL (1.3-4.4); LYMPH % 32.6 % (27.0-41.0); MEAN CELL VOLUME 92.7 fl (81.0-99.0); MEAN CORPUSCULAR HGB 31.3 pg (27.0-31.0); MEAN CORPUSCULAR HGB CONC 33.8 g/dl (33.0-37.0); MEAN PLATELET VOLUME 8.9 fl (9.6-12.3); MONO # 0.5 10*3/uL (0.1-1.0); MONO % 7.7 % (3.0-9.0); NEUT # 4.1 10*3/uL (2.3-7.9); NEUT % 58.3 % (47.0-73.0); PLATELET COUNT AUTOMATED 287 10*3/uL (130-400); RED BLOOD COUNT 4.25 10*6/uL (4.10-5.10); RED CELL DISTRI WIDTH 13.4 % (0-14.5)
[2021-01-17 14:28] LABS: BUN 11 mg/dl (7-24); CHLORIDE 110 mmol/L (98-107); CREATININE 0.69 mg/dL (0.55-1.02); POTASSIUM 3.8 mmol/L (3.5-5.1); SODIUM 140 mmol/L (136-145)
[2021-01-17 14:50] LABS: ALBUMIN 3.8 gm/dl (3.1-4.5); ALKALINE PHOSPHATASE 46 U/L (45-117); SGOT/AST 14 IU/L (3-35); SGPT/ALT 20 U/L (12-78); TOTAL PROTEIN 7.4 gm/dL (6.4-8.2)
== END 2021-01-17 17:15 | disposition home or self-care (01) ==
LOC: ED 13:10
PROVIDERS: Emergency Medicine
DX: R07.89 Other chest pain (principal); R41.0 Disorientation, unspecified; I10 Essential (primary) hypertension; Z79.899 Other long term (current) drug therapy

== ENCOUNTER 2021-11-10 19:06 | Emergency (ER) | payer OTHER ==
[~2021-11-10] VITALS: Ht 165.1 cm; Wt 52.2 kg
== END 2021-11-11 04:15 | disposition home or self-care (01) ==
LOC: ED 19:06
DX: M54.50 Low back pain, unspecified (principal); I10 Essential (primary) hypertension; F17.200 Nicotine dependence, unspecified, uncomplicated; Z90.49 Acquired absence of other specified parts of digestive tract; Z98.51 Tubal ligation status; Z79.899 Other long term (current) drug therapy; Z90.89 Acquired absence of other organs

== ENCOUNTER 2022-04-18 19:27 | Inpatient (IN) | payer OTHER ==
[2022-04-18] VITALS (7 sets, daily range): BP systolic 143–169; BP diastolic 96–125
[~2022-04-18] VITALS: Ht 165.1 cm; Wt 49.9 kg
[2022-04-18 21:06] LABS: BASO # 0.1 10*3/uL (0.0-0.1); BASO % 0.3 % (0.0-1.0); EOS % 0.1 % (1.0-4.0); HEMATOCRIT 41.8 % (37.0-47.0); LYMPH # 2.2 10*3/uL (1.3-4.4); LYMPH % 14.2 % (27.0-41.0); MEAN CELL VOLUME 90.7 fl (81.0-99.0); MEAN CORPUSCULAR HGB 31.9 pg (27.0-31.0); MEAN CORPUSCULAR HGB CONC 35.2 g/dl (33.0-37.0); MEAN PLATELET VOLUME 8.9 fl (9.6-12.3); MONO # 0.8 10*3/uL (0.1-1.0); MONO % 5.3 % (3.0-9.0); NEUT # 12.3 10*3/uL (2.3-7.9); NEUT % 79.8 % (47.0-73.0); PLATELET COUNT AUTOMATED 287 10*3/uL (130-400); RED BLOOD COUNT 4.61 10*6/uL (4.10-5.10); RED CELL DISTRI WIDTH 13.3 % (0-14.5); WHITE BLOOD COUNT 15.4 10*3/uL (4.8-10.8)
[2022-04-18 21:16] LABS: ACT PARTIAL THROMBO TIME 26.5 SECONDS (20.0-32.1)
[2022-04-18 21:21] LABS: ALKALINE PHOSPHATASE 49 U/L (46-116); CHLORIDE 106 mmol/L (98-107); CREATININE 0.54 mg/dL (0.55-1.02); POTASSIUM 3.6 mmol/L (3.4-5.1); SGPT/ALT 9 U/L (10-49); SODIUM 136 mmol/L (136-145); TOTAL PROTEIN 7.3 gm/dL (6.0-8.0)
[2022-04-18 21:22] LABS: BUN < 5 mg/dl (9-23)
[2022-04-19] VITALS (8 sets, daily range): BP systolic 124–145; BP diastolic 73–89
== END 2022-04-19 17:25 | disposition home or self-care (01) | DRG 203 ==
LOC: ED 19:27 → EDHOLD 04-19 06:23 → 5E 04-19 16:18
PROVIDERS: Emergency Medicine; ADMIT Internal Medicine; ATTEND Internal Medicine
PROC: 4A02XM4 Measurement of Cardiac Total Activity, External Approach (ICD-10-PCS; principal; 2022-04-19)
PROC: 3E073KZ Introduction of Other Diagnostic Substance into Coronary Artery, Percutaneous Approach (ICD-10-PCS; 2022-04-19)
DX: M94.0 Chondrocostal junction syndrome [Tietze] (principal); E04.1 Nontoxic single thyroid nodule; I10 Essential (primary) hypertension; F41.1 Generalized anxiety disorder; G43.909 Migraine, unspecified, not intractable, without status migrainosus; M54.50 Low back pain, unspecified; G89.29 Other chronic pain; Z90.710 Acquired absence of both cervix and uterus; Z90.49 Acquired absence of other specified parts of digestive tract; Z98.51 Tubal ligation status

== ENCOUNTER → 2022-07-24 | Outpatient (CLI) | payer MEDICAID ==
[~2022-07-24] MED LIST changes: +CLONIDINE HCL0.2 MG PO; +Oscal,Oyster S500 MG PO; +TOPAMAX50 MG PO
== END | disposition home or self-care (01) ==
LOC: CARD 09:52
PROVIDERS: ATTEND Internal Medicine
DX: R00.2 Palpitations (principal); R06.02 Shortness of breath

== ENCOUNTER 2022-12-30 15:18 | Inpatient (IN) | payer MEDICAID ==
[~2022-12-30] VITALS: Ht 160 cm; Wt 51.4 kg
[2022-12-30 15:40] VITALS: BP 182/122
[2022-12-30] MEDS ORDERED: METOPROLOL TART50 M1 PO (15:57)
[2022-12-30] MEDS ORDERED: ASPIRIN FOR CHI81 MG PO (15:57)
[2022-12-30] MEDS ORDERED: POTASSIUM CHLO20 ME3 PO (15:58)
[2022-12-30] MEDS ORDERED: PANTOPRAZOLE SO40 MG PO (15:59)
[2022-12-30] MEDS ORDERED: HYDROCHLOROTH12.5 M2 PO (16:00)
[2022-12-30] MEDS ORDERED: MIRALAX POWDER17 G1 PO (16:01)
[2022-12-30] MEDS ORDERED: PROCARDIA XL60 MG PO (16:01)
[2022-12-30] MEDS ORDERED: CARAFATE1 G1 PO (16:01)
[2022-12-30] MEDS ORDERED: LIPITOR40 MG PO (16:02)
[2022-12-30] MEDS ORDERED: IBUPROFEN400 MG PO (16:03)
[2022-12-30] MEDS ORDERED: METOCLOPRAMIDE10 MG PO (16:03)
[2022-12-30 16:10] VITALS: BP 156/108
[2022-12-30 16:13] LABS: BASO # 0.1 10*3/uL (0.0-0.1); BASO % 0.6 % (0.0-1.0); EOS # 0.1 10*3/uL (0.0-0.4); EOS % 0.9 % (1.0-4.0); HEMATOCRIT 43.4 % (37.0-47.0); LYMPH # 1.7 10*3/uL (1.3-4.4); LYMPH % 14.4 % (27.0-41.0); MEAN CELL VOLUME 91.2 fl (81.0-99.0); MEAN CORPUSCULAR HGB 30.7 pg (27.0-31.0); MEAN CORPUSCULAR HGB CONC 33.6 g/dl (33.0-37.0); MEAN PLATELET VOLUME 8.6 fl (9.6-12.3); MONO # 0.9 10*3/uL (0.1-1.0); MONO % 7.7 % (3.0-9.0); NEUT # 8.9 10*3/uL (2.3-7.9); PLATELET COUNT AUTOMATED 295 10*3/uL (130-400); RED BLOOD COUNT 4.76 10*6/uL (4.10-5.10); RED CELL DISTRI WIDTH 14.1 % (0-14.5); WHITE BLOOD COUNT 11.7 10*3/uL (4.8-10.8)
[2022-12-30 16:35] LABS: BILIRUBIN Negative (Negative); BLOOD Negative (Negative); CLARITY Turbid (Clear); COLOR Yellow (Yellow); GLUCOSE Negative (Negative); KETONE Trace (Negative); LEUKO ESTERASE Negative (Negative); NITRITE Negative (Negative); PH 6.5 (4.5-8.0); SPECIFIC GRAVITY >= 1.030 (1.001-1.030)
[2022-12-30 16:41] LABS: ALKALINE PHOSPHATASE 62 U/L (46-116); BUN 13 mg/dl (9-23); CHLORIDE 108 mmol/L (98-107); POTASSIUM 3.3 mmol/L (3.4-5.1); SGPT/ALT 9 U/L (10-49); TOTAL PROTEIN 7.4 gm/dL (6.0-8.0)
[2022-12-30 16:59] LABS: BACTERIA 1+; EPITHELIAL CELLS 31-40; RBC 0-2 rbc/hpf (0-2); WBC 0-2 wbc/hpf (0-5)
[2022-12-30 17:10] VITALS: BP 150/101
[2022-12-30 18:10] VITALS: BP 151/101
[2022-12-30 19:12] VITALS: BP 139/79
[2022-12-31] VITALS: BP 136/84
[2022-12-31 07:26] VITALS: BP 116/79
[2022-12-31 09:07] VITALS: BP 143/89
[2022-12-31 13:38] VITALS: BP 155/86
[2022-12-31 17:00] VITALS: BP 150/90
[2022-12-31 20:00] VITALS: BP 136/81
[2023-01-01] VITALS: BP 135/89
[2023-01-01 08:00] VITALS: BP 146/88
[2023-01-01 12:00] VITALS: BP 147/94
== END 2023-01-01 14:30 | disposition home or self-care (01) | DRG 141 ==
LOC: ED 15:18 → 4E 20:47 → EDHOLD 20:47 → 4E 12-31 16:06
PROVIDERS: Nurse Practitioner Family; ADMIT Internal Medicine; ATTEND Internal Medicine
DX: J45.21 Mild intermittent asthma with (acute) exacerbation (principal); I10 Essential (primary) hypertension; K31.84 Gastroparesis; F41.1 Generalized anxiety disorder; R41.0 Disorientation, unspecified; M54.50 Low back pain, unspecified; E04.1 Nontoxic single thyroid nodule; Z90.49 Acquired absence of other specified parts of digestive tract; Z98.51 Tubal ligation status; Z86.73 Personal history of transient ischemic attack (TIA), and cerebral infarction without residual deficits

== ENCOUNTER 2023-04-18 22:22 | Emergency (ER) | payer MEDICAID ==
[~2023-04-18 22:22] MED LIST changes: +ASPIRIN FOR CHI81 MG PO; +CARAFATE1 G1 PO; +HYDROCHLOROTH12.5 M2 PO; +IBUPROFEN400 MG PO; +LIPITOR40 MG PO; +METOCLOPRAMIDE10 MG PO; +METOPROLOL TART50 M1 PO; +MIRALAX POWDER17 G1 PO; +PANTOPRAZOLE SO40 MG PO; +POTASSIUM CHLO20 ME3 PO; +PROCARDIA XL60 MG PO
== END 2023-04-18 23:50 | disposition home or self-care (01) ==
LOC: ED 22:22
DX: R22.9 Localized swelling, mass and lump, unspecified (principal); J45.909 Unspecified asthma, uncomplicated; F41.9 Anxiety disorder, unspecified; G43.909 Migraine, unspecified, not intractable, without status migrainosus; Z90.710 Acquired absence of both cervix and uterus; Z90.49 Acquired absence of other specified parts of digestive tract; Z98.51 Tubal ligation status; Z98.890 Other specified postprocedural states

== ENCOUNTER 2023-07-13 20:12 | Emergency (ER) | payer MEDICAID ==
[~2023-07-13] VITALS: Ht 165.1 cm; Wt 55.3 kg
[2023-07-13] MEDS ORDERED: SODIUM CHLORIDE 0.9% 1,000 ML IV ONE (20:30)
[2023-07-13] MEDS ORDERED: IOHEXOL 300 MG/ML 100 ML VIAL IV ONE (20:35)
[2023-07-13 20:55] LABS: BASO # 0.1 10*3/uL (0.0-0.1); BASO % 0.7 % (0.0-1.0); EOS # 0.1 10*3/uL (0.0-0.4); EOS % 0.8 % (1.0-4.0); HEMATOCRIT 43.3 % (37.0-47.0); LYMPH # 2.7 10*3/uL (1.3-4.4); LYMPH % 29.5 % (27.0-41.0); MEAN CELL VOLUME 93.3 fl (81.0-99.0); MEAN CORPUSCULAR HGB CONC 33.3 g/dl (33.0-37.0); MEAN PLATELET VOLUME 8.5 fl (9.6-12.3); MONO # 0.7 10*3/uL (0.1-1.0); MONO % 7.5 % (3.0-9.0); NEUT # 5.7 10*3/uL (2.3-7.9); NEUT % 61.3 % (47.0-73.0); PLATELET COUNT AUTOMATED 326 10*3/uL (130-400); RED BLOOD COUNT 4.64 10*6/uL (4.10-5.10); RED CELL DISTRI WIDTH 14.2 % (0-14.5); WHITE BLOOD COUNT 9.2 10*3/uL (4.8-10.8)
[2023-07-13 21:22] LABS: ALKALINE PHOSPHATASE 59 U/L (46-116); CHLORIDE 104 mmol/L (98-107); LIPASE 24 U/L (12-53); POTASSIUM 3.5 mmol/L (3.4-5.1); SGPT/ALT 9 U/L (5-49); TOTAL PROTEIN 7.2 gm/dL (6.0-8.0)
[2023-07-13 21:23] LABS: BUN < 5 mg/dl (9-23); ETHYL ALCOHOL < 3.0 mg/dl (<3)
[2023-07-13 22:36] LABS: BILIRUBIN Negative (Negative); BLOOD Negative (Negative); CLARITY Cloudy (Clear); COLOR Yellow (Yellow); GLUCOSE Negative (Negative); KETONE Negative (Negative); LEUKO ESTERASE Trace (Negative); NITRITE Negative (Negative)
[2023-07-13 22:54] LABS: BACTERIA 1+; RBC 0-2 rbc/hpf (0-2)
[2023-07-13 23:12] LABS: URINE AMPHETAMINES Negative (1000ng/ml); URINE BARBITURATES Negative (200ng/ml); URINE BENZODIAZEPINES Negative (200ng/ml); URINE CANNABINOIDS (THC) Positive (50ng/ml); URINE COCAINE Negative (300ng/ml); URINE METHADONE Negative (300ng/ml); URINE OPIATES Negative (300ng/ml); URINE PHENCYCLIDINE Negative (25ng/ml)
[2023-07-13] MEDS ORDERED: Ondansetron Hydrochloride 4 MG/2 ML VIAL IV ONE (23:20)
[2023-07-13] MEDS ORDERED: Ketorolac Tromethamine 30 MG/ML VIAL IV ONE (23:20)
[2023-07-13] MEDS ORDERED: CIPRO500 MG PO (23:29)
[2023-07-13] MEDS ORDERED: METRONIDAZOLE500 M1 PO (23:29)
== END 2023-07-13 23:54 | disposition home or self-care (01) ==
LOC: ED 20:12
PROVIDERS: Internal Medicine
DX: K52.9 Noninfective gastroenteritis and colitis, unspecified (principal); R11.2 Nausea with vomiting, unspecified; Z79.899 Other long term (current) drug therapy; Z79.82 Long term (current) use of aspirin; Z90.711 Acquired absence of uterus with remaining cervical stump; Z90.49 Acquired absence of other specified parts of digestive tract; Z98.51 Tubal ligation status; Z98.890 Other specified postprocedural states

== ENCOUNTER 2023-08-25 00:28 | Emergency (ER) | payer MEDICAID ==
[~2023-08-25] VITALS: Ht 165.1 cm; Wt 52.6 kg
[~2023-08-25 00:28] MED LIST changes: +CIPRO500 MG PO; +METRONIDAZOLE500 M1 PO
[2023-08-25] MEDS ORDERED: LORazepam 1 MG TAB PO ONE (00:55)
[2023-08-25 01:11] LABS: BASO # 0.1 10*3/uL (0.0-0.1); BASO % 0.5 % (0.0-1.0); EOS % 0.4 % (1.0-4.0); HEMATOCRIT 42.1 % (37.0-47.0); LYMPH # 1.8 10*3/uL (1.3-4.4); LYMPH % 15.8 % (27.0-41.0); MEAN CELL VOLUME 93.6 fl (81.0-99.0); MEAN CORPUSCULAR HGB 30.4 pg (27.0-31.0); MEAN CORPUSCULAR HGB CONC 32.5 g/dl (33.0-37.0); MEAN PLATELET VOLUME 8.7 fl (9.6-12.3); MONO # 0.8 10*3/uL (0.1-1.0); NEUT # 8.4 10*3/uL (2.3-7.9); PLATELET COUNT AUTOMATED 296 10*3/uL (130-400); RED CELL DISTRI WIDTH 13.2 % (0-14.5); WHITE BLOOD COUNT 11.1 10*3/uL (4.8-10.8)
[2023-08-25 01:32] LABS: ALKALINE PHOSPHATASE 55 U/L (46-116); BUN 8 mg/dl (9-23); CHLORIDE 106 mmol/L (98-107); POTASSIUM 3.2 mmol/L (3.4-5.1); SGPT/ALT 12 U/L (5-49); TOTAL PROTEIN 7.3 gm/dL (6.0-8.0)
[2023-08-25] MEDS ORDERED: POTASSIUM CHLORIDE 20 MEQ TAB PO ONE (01:40)
== END 2023-08-25 02:56 | disposition home or self-care (01) ==
LOC: ED 00:28
PROVIDERS: Internal Medicine
DX: F41.9 Anxiety disorder, unspecified (principal); E87.6 Hypokalemia; J45.909 Unspecified asthma, uncomplicated; G43.909 Migraine, unspecified, not intractable, without status migrainosus; Z90.710 Acquired absence of both cervix and uterus; Z90.49 Acquired absence of other specified parts of digestive tract; Z98.890 Other specified postprocedural states; Z98.51 Tubal ligation status

== ENCOUNTER 2023-10-25 18:45 | Emergency (ER) | payer MEDICAID ==
[~2023-10-25] VITALS: Ht 165.1 cm; Wt 56.7 kg
[2023-10-25] MEDS ORDERED: hydrALAZINE hydrochloride 20 MG/ML VIAL IV ONE (19:30)
[2023-10-25 19:47] LABS: BASO # 0.1 10*3/uL (0.0-0.1); EOS % 0.6 % (1.0-4.0); HEMATOCRIT 40.9 % (37.0-47.0); LYMPH # 2.8 10*3/uL (1.3-4.4); LYMPH % 45.7 % (27.0-41.0); MEAN CELL VOLUME 94.2 fl (81.0-99.0); MEAN CORPUSCULAR HGB 31.8 pg (27.0-31.0); MEAN CORPUSCULAR HGB CONC 33.7 g/dl (33.0-37.0); MONO # 0.5 10*3/uL (0.1-1.0); MONO % 8.4 % (3.0-9.0); NEUT # 2.7 10*3/uL (2.3-7.9); PLATELET COUNT AUTOMATED 286 10*3/uL (130-400); RED BLOOD COUNT 4.34 10*6/uL (4.10-5.10); RED CELL DISTRI WIDTH 14.6 % (0-14.5); WHITE BLOOD COUNT 6.2 10*3/uL (4.8-10.8)
[2023-10-25 20:04] LABS: ALKALINE PHOSPHATASE 55 U/L (46-116); BUN 11 mg/dl (9-23); CHLORIDE 110 mmol/L (98-107); CPK 36 U/L (34-171); POTASSIUM 3.3 mmol/L (3.4-5.1); SGPT/ALT 8 U/L (5-49); TOTAL PROTEIN 6.9 gm/dL (6.0-8.0)
[2023-10-25 20:08] LABS: BILIRUBIN Negative (Negative); BLOOD Negative (Negative); CLARITY Turbid (Clear); COLOR Yellow (Yellow); GLUCOSE Negative (Negative); KETONE Trace (Negative); LEUKO ESTERASE Negative (Negative); NITRITE Negative (Negative); PH 6.5 (4.5-8.0); SPECIFIC GRAVITY 1.025 (1.001-1.030)
[2023-10-25 20:17] LABS: BACTERIA 1+; URINE AMPHETAMINES Negative (1000ng/ml); URINE BARBITURATES Negative (200ng/ml); URINE BENZODIAZEPINES Negative (200ng/ml); URINE CANNABINOIDS (THC) Positive (50ng/ml); URINE COCAINE Negative (300ng/ml); URINE METHADONE Negative (300ng/ml); URINE OPIATES Positive (300ng/ml); URINE PHENCYCLIDINE Negative (25ng/ml)
== END 2023-10-25 22:16 | disposition home or self-care (01) ==
LOC: ED 18:45
PROVIDERS: Physician Assistant Medical
DX: R55 Syncope and collapse (principal); F41.9 Anxiety disorder, unspecified; I10 Essential (primary) hypertension; J45.909 Unspecified asthma, uncomplicated; G43.909 Migraine, unspecified, not intractable, without status migrainosus; Z86.73 Personal history of transient ischemic attack (TIA), and cerebral infarction without residual deficits; Z98.890 Other specified postprocedural states; Z90.49 Acquired absence of other specified parts of digestive tract; Z90.710 Acquired absence of both cervix and uterus; Z98.51 Tubal ligation status

== ENCOUNTER 2023-10-26 19:10 | Emergency (ER) | payer MEDICAID ==
[~2023-10-26] VITALS: Ht 12.7 cm; Wt 56.2 kg
[2023-10-26 19:36] LABS: BASO # 0.1 10*3/uL (0.0-0.1); EOS # 0.1 10*3/uL (0.0-0.4); HEMATOCRIT 42.1 % (37.0-47.0); LYMPH # 2.2 10*3/uL (1.3-4.4); LYMPH % 35.9 % (27.0-41.0); MEAN CELL VOLUME 94.2 fl (81.0-99.0); MEAN CORPUSCULAR HGB 31.5 pg (27.0-31.0); MEAN CORPUSCULAR HGB CONC 33.5 g/dl (33.0-37.0); MEAN PLATELET VOLUME 8.8 fl (9.6-12.3); MONO # 0.6 10*3/uL (0.1-1.0); MONO % 10.3 % (3.0-9.0); NEUT # 3.2 10*3/uL (2.3-7.9); NEUT % 51.6 % (47.0-73.0); PLATELET COUNT AUTOMATED 308 10*3/uL (130-400); RED BLOOD COUNT 4.47 10*6/uL (4.10-5.10); RED CELL DISTRI WIDTH 14.7 % (0-14.5); WHITE BLOOD COUNT 6.2 10*3/uL (4.8-10.8)
[2023-10-26 19:46] LABS: BILIRUBIN Negative (Negative); BLOOD Negative (Negative); CLARITY Turbid (Clear); COLOR Yellow (Yellow); GLUCOSE Negative (Negative); KETONE Trace (Negative); LEUKO ESTERASE Trace (Negative); NITRITE Negative (Negative)
[2023-10-26 19:54] LABS: URINE AMPHETAMINES Negative (1000ng/ml); URINE BARBITURATES Negative (200ng/ml); URINE BENZODIAZEPINES Negative (200ng/ml); URINE CANNABINOIDS (THC) Positive (50ng/ml); URINE COCAINE Negative (300ng/ml); URINE METHADONE Negative (300ng/ml); URINE OPIATES Negative (300ng/ml); URINE PHENCYCLIDINE Negative (25ng/ml)
[2023-10-26 19:57] LABS: ALKALINE PHOSPHATASE 58 U/L (46-116); BUN 17 mg/dl (9-23); CHLORIDE 110 mmol/L (98-107); ETHYL ALCOHOL < 3.0 mg/dl (<3); POTASSIUM 3.4 mmol/L (3.4-5.1); SGPT/ALT < 7 U/L (5-49); TOTAL PROTEIN 7.5 gm/dL (6.0-8.0)
[2023-10-26] MEDS ORDERED: ACETAMINOPHEN 325 MG TAB PO ONE (21:30)
== END 2023-10-26 21:33 | disposition home or self-care (01) ==
LOC: ED 19:10
PROVIDERS: Internal Medicine
DX: S09.8XXA Other specified injuries of head, initial encounter (principal); J45.909 Unspecified asthma, uncomplicated; F41.9 Anxiety disorder, unspecified; G43.909 Migraine, unspecified, not intractable, without status migrainosus; Z90.710 Acquired absence of both cervix and uterus; Z90.49 Acquired absence of other specified parts of digestive tract; Z98.51 Tubal ligation status; Z98.890 Other specified postprocedural states; W01.198A Fall on same level from slipping, tripping and stumbling with subsequent striking against other object, initial encounter; Y93.89 Activity, other specified; Y92.89 Other specified places as the place of occurrence of the external cause; Y99.8 Other external cause status

== ENCOUNTER 2023-10-31 00:35 | Emergency (ER) | payer MEDICAID ==
[~2023-10-31] VITALS: Ht 165.1 cm; Wt 56.7 kg
[2023-10-31 01:00] LABS: BASO # 0.1 10*3/uL (0.0-0.1); BASO % 0.3 % (0.0-1.0); EOS % 0.2 % (1.0-4.0); HEMATOCRIT 45.1 % (37.0-47.0); LYMPH # 1.5 10*3/uL (1.3-4.4); LYMPH % 8.4 % (27.0-41.0); MEAN PLATELET VOLUME 8.8 fl (9.6-12.3); MONO % 5.7 % (3.0-9.0); NEUT # 14.7 10*3/uL (2.3-7.9); NEUT % 84.9 % (47.0-73.0); PLATELET COUNT AUTOMATED 301 10*3/uL (130-400); RED CELL DISTRI WIDTH 13.9 % (0-14.5); WHITE BLOOD COUNT 17.3 10*3/uL (4.8-10.8)
[2023-10-31 01:19] LABS: BUN 27 mg/dl (9-23); CHLORIDE 105 mmol/L (98-107); ETHYL ALCOHOL 3.4 mg/dl (<3); POTASSIUM 4.3 mmol/L (3.4-5.1)
== END 2023-10-31 03:16 | disposition left against medical advice (07) ==
LOC: ED 00:35
PROVIDERS: Internal Medicine
DX: R56.9 Unspecified convulsions (principal); D72.829 Elevated white blood cell count, unspecified; N17.9 Acute kidney failure, unspecified; Z53.29 Procedure and treatment not carried out because of patient's decision for other reasons; J45.909 Unspecified asthma, uncomplicated; F41.9 Anxiety disorder, unspecified; G43.909 Migraine, unspecified, not intractable, without status migrainosus; Z90.710 Acquired absence of both cervix and uterus; Z90.49 Acquired absence of other specified parts of digestive tract; Z98.51 Tubal ligation status; Z98.890 Other specified postprocedural states

== ENCOUNTER 2024-10-05 17:21 | Emergency (ER) | payer MEDICAID ==
[~2024-10-05] VITALS: Ht 165.1 cm; Wt 54.4 kg
[2024-10-05] MEDS ORDERED: AMLODIPINE BESYL5 MG PO (18:01)
[2024-10-05] MEDS ORDERED: DULOXETINE HCL60 MG PO (18:02)
[2024-10-05] MEDS ORDERED: HYDROCHLOROTHIA25 M1 PO (18:05)
[2024-10-05 19:04] LABS: BASO # 0.1 10*3/uL (0.0-0.1); BASO % 0.7 % (0.0-1.0); EOS # 0.1 10*3/uL (0.0-0.4); EOS % 1.3 % (1.0-4.0); HEMATOCRIT 42.4 % (37.0-47.0); MEAN CELL VOLUME 92.6 fl (81.0-99.0); MEAN CORPUSCULAR HGB 32.1 pg (27.0-31.0); MEAN CORPUSCULAR HGB CONC 34.7 g/dl (33.0-37.0); MEAN PLATELET VOLUME 8.9 fl (9.6-12.3); MONO # 0.8 10*3/uL (0.1-1.0); MONO % 7.8 % (3.0-9.0); NEUT # 6.8 10*3/uL (2.3-7.9); NEUT % 67.3 % (47.0-73.0); PLATELET COUNT AUTOMATED 281 10*3/uL (130-400); RED BLOOD COUNT 4.58 10*6/uL (4.10-5.10); RED CELL DISTRI WIDTH 13.6 % (0-14.5); WHITE BLOOD COUNT 10.1 10*3/uL (4.8-10.8)
[2024-10-05 19:29] LABS: BILIRUBIN Negative (Negative); BLOOD Negative (Negative); CLARITY Clear (Clear); COLOR Yellow (Yellow); GLUCOSE Negative (Negative); KETONE Negative (Negative); LEUKO ESTERASE Negative (Negative); NITRITE Negative (Negative); PH 7.5 (4.5-8.0); SPECIFIC GRAVITY 1.015 (1.001-1.030); UROBILINOGEN 0.2 E.U./dl (0.0-1.0)
[2024-10-05 19:31] LABS: URINE AMPHETAMINES Negative (1000ng/ml); URINE BARBITURATES Negative (200ng/ml); URINE BENZODIAZEPINES Negative (200ng/ml); URINE CANNABINOIDS (THC) Positive (50ng/ml); URINE COCAINE Negative (300ng/ml); URINE METHADONE Negative (300ng/ml); URINE OPIATES Positive (300ng/ml); URINE PHENCYCLIDINE Negative (25ng/ml)
[2024-10-05 19:32] LABS: ALKALINE PHOSPHATASE 48 U/L (46-116); BUN 14 mg/dl (9-23); CHLORIDE 102 mmol/L (98-107); POTASSIUM 3.7 mmol/L (3.4-5.1); SGPT/ALT 9 U/L (5-49); TOTAL PROTEIN 7.2 gm/dL (6.0-8.0)
[2024-10-05 19:35] LABS: ETHYL ALCOHOL < 3.0 mg/dl (<3)
[2024-10-05] MEDS ORDERED: SODIUM CHLORIDE 0.9% 1,000 ML IV ONE (19:45)
[2024-10-05 19:54] LABS: BACTERIA TRACE
[2024-10-05] MEDS ORDERED: GABAPENTIN400 MG PO (21:06)
[2024-10-05] MEDS ORDERED: GABAPENTIN 400 MG CAP PO ONE (21:10)
== END 2024-10-05 21:10 | disposition home or self-care (01) ==
LOC: ED 17:21
PROVIDERS: Nurse Practitioner Family
DX: R25.9 Unspecified abnormal involuntary movements (principal); R07.89 Other chest pain; J45.909 Unspecified asthma, uncomplicated; F41.9 Anxiety disorder, unspecified; G43.909 Migraine, unspecified, not intractable, without status migrainosus; K21.9 Gastro-esophageal reflux disease without esophagitis; I10 Essential (primary) hypertension; Z79.82 Long term (current) use of aspirin; Z79.899 Other long term (current) drug therapy; Z86.73 Personal history of transient ischemic attack (TIA), and cerebral infarction without residual deficits; Z90.710 Acquired absence of both cervix and uterus; Z90.49 Acquired absence of other specified parts of digestive tract; Z98.890 Other specified postprocedural states

== ENCOUNTER → 2025-02-18 | Outpatient (CLI) | payer MEDICAID ==
[~2025-02-18] MED LIST changes: +AMLODIPINE BESYL5 MG PO; +DULOXETINE HCL60 MG PO; +GABAPENTIN400 MG PO; +HYDROCHLOROTHIA25 M1 PO
== END | disposition home or self-care (01) ==
LOC: MAMMO 02:40
PROVIDERS: ATTEND Internal Medicine
DX: N60.01 Solitary cyst of right breast (principal); N63.0 Unspecified lump in unspecified breast; R92.333 Mammographic heterogeneous density, bilateral breasts; R92.1 Mammographic calcification found on diagnostic imaging of breast